=== PATIENT | female | born 1940 | race Caucasian/White ===

== ENCOUNTER 2017-01-10 11:16 | Day surgery (SDC) | payer MEDICARE ==
[~2017-01-10] VITALS: Ht 165.1 cm; Wt 73.3 kg
[2017-01-10] VITALS (11 sets, daily range): BP systolic 121–152; BP diastolic 50–82; PULSE 58–88; RESP 10–18; O2SAT 93–99
[~2017-01-10 11:16] MED LIST: AMLO2.5T PO; BUPR150T9 PO; Clindamycin 900 mg/50 mL D5W IV ONE; DICY10CA13 PO; DRON400T PO; ESTR0.5T; LOSA1TAB70 PO; Lactated Ringer's 1,000 ML IV SCH; OMEP20CA11 PO; PARO20TA5 PO; Phenazopyridine 97.5 mg Tablet PO ONE; SERT50TA9 PO; SPIR25TA3 PO; ZOLP5TAB6 PO
[2017-01-10] MEDS ORDERED: EPHEDrine/NS 5 mg/mL 5 mL Syringe ONE (11:17)
[2017-01-10] MEDS ORDERED: Dexamethasone 4 mg/mL Inj ONE (11:17)
[2017-01-10] MEDS ORDERED: Propofol 10,000 mCg/mL 20 mL Inj ONE (11:17)
[2017-01-10] MEDS ORDERED: Neostigmine 1 mg/mL 10 mL Inj ONE (11:17)
[2017-01-10] MEDS ORDERED: MetoCLOpramide 5 mg/mL 2 mL Inj ONE (11:17)
[2017-01-10] MEDS ORDERED: Rocuronium 10 mg/mL 5 mL Inj ONE (11:17)
[2017-01-10] MEDS ORDERED: fentaNYL-PF 50 mCg/mL 2 mL Inj ONE (11:17)
[2017-01-10] MEDS ORDERED: HYDROmorphone 2 mg/mL Inj ONE (11:17)
[2017-01-10] MEDS ORDERED: Ondansetron 2 mg/mL 2 mL Inj ONE (11:17)
[2017-01-10] MEDS ORDERED: Glycopyrrolate 0.2 mg/mL 5 mL Inj ONE (11:17)
[2017-01-10] MEDS ORDERED: Phenazopyridine 97.5 mg Tablet ONE (11:46)
[2017-01-10] MEDS ORDERED: Clindamycin 900 mg/50 mL D5W Premix IV ONE (11:46)
[2017-01-10] MEDS ORDERED: Lactated Ringer's 1,000 ML IV ONE (12:11)
[2017-01-10] MEDS ORDERED: Lactated Ringer's 500 ML IV PRN (13:17)
[2017-01-10] MEDS ORDERED: Lactated Ringer's 1,000 ML IV SCH (13:17)
--- NOTE | 2017-01-10 13:17 | PCM.HPANE ---
Patient Data Surgeon Admitting Provider: Attending Provider:Sid Ocampo MD Primary Care Physician:Mari Other Provider:Danny Chaparro Anesthesia Reason for Visit Cystocele,Rectocele,Stress Incontinence Ht/WT & BMI Height (Feet): 5 Height (Inches): 5 Weight (Kilograms): 73.93 Body Mass Index 27.00 Allergies Coded Allergies: Penicillins (Verified Allergy, Unknown, 01/08/17) prochlorperazine (Verified Allergy, Unknown, 01/08/17) Uncoded Allergies: POLLENS (Allergy, Unknown, 01/08/17) SHELLFISH (Allergy, Unknown, facial swelling, 01/08/17) new allergy- uncertain if she is intolerant of topical iodine Past Anesthesia History Anesthesia History: Denies:: Anesthesia Reactions, Fam Anesthesia Reaction, Fam Malignant Hypertherm, Malignant Hyperthermia Diabetes History Hx Diabetes?: No MRSA MRSA: No Medications Blood Thinner: Aspirin Hypertension Medication: Yes Home Meds Incl Beta Poli: No Reported Medications Dicyclomine 10 Mg Qwnckpo58 Mg PO QID PRN For GI Cramps Ref 0 01/08/17 Losartan/HCTZ 100-25 mg 1 Each Tablet1 Tablet PO DAILY Ref 0 01/08/17 Zolpidem 5 Mg Tablet5 Mg PO HS PRN For Insomnia Ref 0 01/08/17 Dronedarone HCl (Multaq)400 Mg Adzzqd464 Mg PO BID 30 Days 01/08/17 Spironolactone 25 Mg Ccaydq59 Mg PO DAILY #30 TABLET Ref 0 01/08/17 Amlodipine 2.5 Mg Tablet2.5 Mg PO DAILY Ref 0 01/08/17 Omeprazole 20 Mg Capsule.dr20 Mg PO DAILY Ref 0 01/08/17 Estradiol 0.5 Mg Tablet1 Tab DAILY 01/08/17 Discontinued Reported Medications Bupropion HCl (Zyban)150 Mg Tablet.er150 Mg PO DAILY 01/08/17 Paroxetine 20 Mg Giasmf80 Mg PO HS 30 Days Ref 0 01/08/17 Sertraline HCl (Sertraline)50 Mg Cdlvpc12 Mg PO DAILY 30 Days Ref 0 01/08/17 History HEENT History: Positive for:: Hearing Problem Sinus Problem (recently finished abx for sinus infection) TMJ (wears nightguard) Denies:: Cataracts Glaucoma Cardiovascular History: Positive for:: Atrial Fibrillation (on multaq) Hypertension Irregular Heartbeat Denies:: AICD Chest Pain Congestive Heart Failure Edema Heart Murmur Pacemaker Peripheral Vascular Hx of Respiratory Problem?: No Respiratory History: Denies:: Asthma COPD Emphysema Oxygen Administration Pneumonia Tuberculosis Use of C-PAP Machine (seleep study done, no CPAP recommended) Use of Inhalers / NEBS Hx Neurologic Problems?: Yes Neurological History: Denies:: CVA Dementia Dizziness Headaches Multiple Sclerosis Parkinson's Disease Seizures TIA Hx of GI Problems?: No Gastrointestinal History: Positive for:: Gastroesphageal Reflux Heartburn Denies:: Cirrhosis Gall Bladder Disease Gastrointestinal Bleeding Hepatitis Hiatal Hernia Liver Disease Rectal Bleeding Hx of Problems?: Yes Female Hx: Denies:: Currently Problems with Breasts? Skin History: Denies:: History Skin Disorders? Pressure Ulcers Hx Musculoskeletal Problems?: Yes Musculoskeletal History: Positive for:: Osteoarthritis (neck) Denies:: Degenerative Joint Fibromyalgia Joint Replacement Musculoskeletal Trauma Myasthenia Gravis Systemic Lupus Hx of Psycho/Social Problems?: No Psycho Social History: Denies:: Anxiety Hx Depression Hx Surgeries?: Yes (cooper, bso, eye surg) Hx Any Other Health Problems?: Yes Other History: Denies:: Cancer Endocrine Disease Hospitalization Thyroid Disease History Blood Transfusions: Positive for:: Accept Blood Products? Denies:: Blood Transfuse Reaction Blood Transfusions Hx Diabetes: No Hx Alcohol Use: YesAlcoholic Drinks Per Day: 2-3 drinks weekly- monthlyHx Substance Use: NoHave You Smoked inLast 12 mo: No Stop/Bang P-Blood Pressure: treated: Yes B- Body Mass Index > 35 kg/m2: No A- Age over 50: Yes N- Neck Large Circumference: No G- Gender Male: Yes Risk Assessment Category Category 1A: Patient has history of documented sleep apnea, and HAS NOT received any narcotic, sedative or anesthesia administration during this stay. Category 1B: Patient has history of documented sleep apnea, and HAS received any narcotic , sedative or anesthesia administration during this stay Category 2: Patient has SUSPECTED Obstructive Sleep Apnea, and HAS received any narcotic , sedative or anesthesia administration during this stay. Category 3: Patient has SUSPECTED Obstructive Sleep Apnea and HAS NOT received narcotic, sedative or anesthesia administration during this stay. Category 4: Outpatient in Procedural Areas with known sleep apnea or who screen positive for High Risk via the STOP/BANG questionnaire. Exam Exam General Appearance: Alert, Oriented X3, Cooperative, No Acute Distress HEENT/AIRWAY: MP 2, Neck Movement (FROM), Mouth Opening (3 FBMO) Lungs: Clear to Auscultation, Normal Air Movement Heart: Exam Unremarkable, Regular Rate/Rhythm, No Murmurs/Rubs/Gallops Plan Impression Patient chart reviewed, patient interviewed and anesthestic plan with risks, benefits, and alternatives discussed, and informed consent obtained. NPO Status: > 8 hrs ASA Physical Status: ASA3 Severe Disease (A fib) Anesthetic Plan: GA Bene/Risks/Altern/Consents: Yes HP Complete Prior to Induction: Yes Iván Harman MD Jan 10, 2017 11:40
[2017-01-10] MEDS ORDERED: Atropine 0.4 mg/mL Inj IVPUSH PRN (13:20)
[2017-01-10] MEDS ORDERED: Labetalol 5 mg/mL 4 mL Inj IV PRN (13:20)
[2017-01-10] MEDS ORDERED: Phenylephrine 10,000 mCg/mL Inj IVPUSH PRN (13:20)
[2017-01-10] MEDS ORDERED: hydrALAZINE 20 mg/mL Inj IVPUSH PRN (13:20)
[2017-01-10] MEDS ORDERED: fentaNYL-PF 50 mCg/mL 2 mL Inj IVPUSH PRN (13:20)
[2017-01-10] MEDS ORDERED: HYDROmorphone 1 mg/mL Inj IVPUSH PRN (13:20)
[2017-01-10] MEDS ORDERED: EPHEDrine Sulfate 50 mg/mL Inj IVPUSH PRN (13:20)
[2017-01-10] MEDS ORDERED: Ondansetron 2 mg/mL 2 mL Inj IVPUSH PRN (13:20)
[2017-01-10] MEDS ORDERED: Lidocaine 1%-Epi 1:100,000 20 mL Inj NERVEBLOCK ONE (13:27)
[2017-01-10] MEDS ORDERED: Gentamicin 40 mg/mL 2 mL Inj IRRIGATION ONE (13:28)
[2017-01-10] MEDS ORDERED: Sodium Chloride Bacteriostatic 30 mL Inj INJ ONE (13:29)
[2017-01-10 14:21] LABS: APPEARANCE,URINE HAZY (CLEAR,HAZY); COLOR,URINE ORANGE (YELLOW); PH,URINE 5.5 (5.0-8.0)
[2017-01-10] MEDS ORDERED: Estrogens Conjugated 30 Gm Vaginal Cream VAGINAL ONE (15:01)
[2017-01-10] MEDS ORDERED: Acetaminophen IV 1,000 MG in IV Premix 1 EACH IV ONE (15:50)
[2017-01-10] MEDS ORDERED: MetoCLOpramide 5 mg/mL 2 mL Inj IVPUSH PRN (15:50)
--- NOTE | 2017-01-10 15:53 | PCM.ANEP2 ---
Post Anesthesia Evaluation ASA/CMS Post Anesthesia VS in Patient's Normal Range?: Yes Resp Stable; Airway Patent?: Yes CV Function & Hydration Stable: Yes Mental Status Recovered?: Yes Pain control Satisfactory?: Yes N/V Control Satisfactory?: Yes Iván Harman MD Jan 10, 2017 15:53
--- NOTE | 2017-01-10 15:53 | PCM.ANEP1 ---
Post Anesthesia Phase 1 PACU Phase 1 Assessment Vital Signs Vital Signs Date Time Temp Pulse Resp B/P Pulse Ox O2 Delivery O2 Flow Rate FiO2 01/10/17 15:45 83 16 130/60 99 Simple Mask 8 01/10/17 15:43 36.3 88 16 135/64 99 Simple Mask 8 01/10/17 12:12 70 18 152/82 97 Room Air Anesthetic Administered: GA Level of Alertness: Awake, talking ESPARZA's with Equal Strength: Yes Pain: No Nausea or Vomiting: No Oxygen Delivery: Simple Mask Lungs: Clear to Auscultation, Normal Air Movement Dermatome Level: Full Sensation Iván Harman MD Jan 10, 2017 15:53
--- NOTE | 2017-01-10 17:09 | NUR ---
Arrival to 1002 Pt transferred to 1002 from PACU at 1700. Pt is alert and oriented and denies any pain. Neuro checks are unremarkable and pt ESPARZA with equal strength. Arevalo patent with orange output. Glasses and belongings transferred with pt. Orientation video played.
[2017-01-10] MEDS: 0.9% Sodium Chloride 1,000 ML IV SCH (19:21)
--- NOTE | 2017-01-10 19:50 | NUR ---
Afib med Pt requested to have hs Dronedarone HCL 200mg for AFIB. Moe paged hospitalist and received an order. Pharmacy unable to obtain the medication or find an alternative med at this time and suggested family bring in med for administration. Pt stated that her and her son is out of town. Pt monitored by cont pulse ox-SPo2 97% on 2L NC. Denies resp distress and chest pain/discomfort. care ongoing.
[2017-01-10] MEDS: oxyCODONE-Acetamin 5-325 mg Tablet PO PRN (20:15)
--- NOTE | 2017-01-10 23:08 | NUR ---
Pain Pt given Percocet 5-325mg and Morphine 1mg, which were ineffective in managing her pain. C/O increased pain 06/07. Dr. Sid Ocampo notified. Ordered Dilaudid IV 0.5-1mg Q2-3hrs for pain. Care ongoing.
[2017-01-10] MEDS: HYDROmorphone 1 mg/mL Inj IVPUSH PRN (23:22)
[2017-01-11] MEDS: 0.9% Sodium Chloride 1,000 ML IV SCH ×3 (00:44→15:47)
[2017-01-11 00:50] VITALS: BP 123/62; PULSE 60; RESP 16; O2SAT 97
--- NOTE | 2017-01-11 02:24 | PCM.SURGOP ---
Surgical Operative Report Date of Service: Jan 10, 2017 Pre Operative Diagnosis 1. Recurrent, symptomatic PELVIC ORGAN PROLAPSE. POP-q Stage 2 (Anterior St 2, Posterior St 1-2). 2. History of multiple abdominopelvic surgeries including: robotic sacralcolpopexy performed by Dr. Cony Alexander at [facility] in 08/06/2013; FARIDA 1985; BSO and excision of pelvic mass 2001; appendectomy 1971. 3. Urodynamic stress incontinence. Post Operative Diagnosis 1. POP-q Stage 2 cystocele and rectocele 2. Deficient pubocervical/pubovesical and rectovaginal fascia 3. History of multiple abdominopelvic surgeries including: robotic sacralcolpopexy performed by Dr. Cony Alexander at [facility] in 08/06/2013; FARIDA 1985; BSO and excision of pelvic mass 2001; appendectomy 1971. 4. Urodynamic stress incontinence. Procedure: anterior and posterior repair with Xenform graft and TVT-O sling/cystoscopy Surgeon and Pharmacy Scheduler: Surgeon: Sid Ocampo MD Assistants: Марина Gregory Indication for Procedure Her assessments include: 1. Recurrent, symptomatic PELVIC ORGAN PROLAPSE. POP-q Stage 2 (Anterior St 2, Posterior St 1-2). 2. History of multiple abdominopelvic surgeries including: robotic sacralcolpopexy performed by Dr. Cony Alexander at [facility] in 08/06/2013; FARIDA 1985; BSO and excision of pelvic mass 2001; appendectomy 1971. 3. Urodynamic stress incontinence. She is a candidate for anterior and posterior repair with Xenform graft and TVT- O sling/cystoscopy. She prefers the transobturator approach rather than the retropubic approach due to the risk of pelvic scarring from multiple previous surgeries and therefore increased risk of organ injury with the retropubic approach. She has the option of staying overnight observation as an outpatient, The patient signed the consent form. She agreed with the risks, benefits, and alternatives to surgery. The risks included but not limited to recurrence or persistence of prolapse, recurrence of persistence of incontinence, development of voiding dysfunction, development of urinary urgency, urgency incontinence, frequency, and need for intermittent self-catheterization or prolonged indwelling catheterization, injury to other organs including bladder, bowel, nerves or blood vessels. Need for blood transfusion, need for temporary colostomy or urinary stenting. Development of vaginal scarring, dyspareunia, defecatory dysfunction, recurring pain, hematoma formation, urinary tract infection, cellulitis, necrotizing fascitis, and medical risks including myocardial infarction, stroke or VTE. She also understood the FDA warnings associated with the use of vaginal mesh (dysparunia, vaginal erosion, erosion into bowel/bladder/urethra, requiring further surgery to correct these complications). The patient understood the risks and benefits and consented to surgery. Findings: see dictation Procedure Details SURGICAL TECHNIQUE: The patient was brought to the operating room and was placed under general anesthesia. She was prepped and draped in the normal fashion for vaginal surgery with the legs in Yellofin stirrups. She was given a dose of IV clindamycin Intraoperatively. She received 200 mg po pyridium 30 min prior to surgery. Examination under anesthesia revealed the presence of adequate apical support from the previous sacralcolpopexy performed by another physician in the past. POPQ stage 2 anterior and posterior vaginal wall descent was noted to the level of the hymen. 1.Anterior colporrhaphy with Xenform graft augmentation: Lidocaine 0.5% with 1/ 45537 epinephrine was infiltrated along the anterior vaginal wall mucosa. A midline vertical incision was made through the anterior vaginal wall, extending to the apex. The vaginal wall was dissected off the underlying pubocervical and pubovesical fascia. The dissection was extended laterally beyond the ischial pubic rami. Bilateral paravaginal defects were noted. It was noted that the pubocervical and pubovesical fascial tissues were insufficient and thin. The cystocele was plicated in 2 layers, the first layer with 2-0 Vicryl suture in interrupted fashion, the second layer with 2-0 Tycron suture in an interrupted fashion. A trapezoidal piece of Xenform graft was then incorporated atop the plicated area far laterally. The graft was secured far laterally into the obturator internus membrane. At the level of the bladder neck, an upside down triangular piece of graft was excised so that there was no excessive-support along the level of the bladder neck. Apically, the graft was passed through the vaginal apex. A mild amount of anterior vaginal mucosa was required to be excised. The vagina was reapproximated with 3-0 Vicryl suture in a running- locked fashion. 2. Posterior colpoperineorrhaphy with Xenform graft augmentation: Lidocaine 0.5 % with 1:50,000 of epinephrine was infiltrated along the perineum and posterior vaginal wall mucosa. A Midline vertical incision was made through the posterior vagina and perineum with a scalpel. The vaginal mucosa was dissected off the underlying rectovaginal tissues. It was noted the fascial tissues were thin and deficient . The rectocele was plicated in one layer midline plication using 2-0 vicryl suture. A small amount of excess posterior vaginal mucosa was excised. A rectangular piece of Xenform graft was incorporated atop the posterior plicated area. The lateral and distal portions of the graft were secured using 2-0 Vicryl suture in an interrupted fashion. The apical portion of the graft was sutured to the vaginal apex. The vagina was then reapproximated using 3-0 Vicryl suture in a running locked fashion. Perineum was reapproximated using 2-0 Vicryl suture in an interrupted fashion. The skin was reapproximated using 3-0 Vicryl suture in a subcuticular fashion. EUA revealed that the vagina allowed for the insertion of 3 gloved-fingers to the apex. Adequate hemostasis was noted. 3.Tension-free vaginal tape obturator sling and cystoscopy: Lidocaine 0.5% with 1/41869 epinephrine was infiltrated along the anterior vaginal wall mucosa at the level of the mid urethra. Midline vertical incision was made at that level, 2 periurethral tunnels were created with Metzenbaum scissors. Two stab incisions were created at the skin at the groin at a level 2 cm superior to the external urethral meatus and 2 cm lateral to the fold created between the vulva and thigh. Arevalo catheter had already been inserted. A butterfly guide was inserted into the right periurethral tunnel, a curved helical needle was inserted on top of the guide and rotated out to the ipsilateral skin incision. The same procedure was performed on the contralateral side. Next the Arevalo catheter was removed. Cystoscopy was performed. There was no inadvertent penetration of the sling to the vagina, urethra or bladder. In addition, the ureteric orifices were noted bilaterally and were noted to be functional by the brisk spillage of pyridium-stained urine. The bladder appeared normal. The plastic sheaths of the sling were removed. The bladder was filled with 300 mL of sterile water. Using the Crede maneuver, sling tension was appropriately adjusted. Also a large right angle clamp was allowed to easily pass behind the sling so that the sling was placed in a tension-free manner. The sling ends were cut at the level of the skin. The skin was reapproximated using Mastisol and Steri-Strips. The vagina was reapproximated using 3-0 Vicryl suture in a running fashion. The estimated blood loss was approximately 150 mL. There were no complications. Her hips were deflexed periodically. All sponges and instruments were accounted for. Complications There were no periprocedural complications identified. Surgical Specimen Removed: No Specimen sent to Pathology: No Anesthetic Plan: GA Grafts, Implants: Grafts-See Implant Record, Implants-See Implant Record Output, Estimated Blood Loss: 150 (ml) Blood Administration during quinn: No Drains: None Catheters: Urethral 2 Way Areavlo Post Operative Plan overnight stay in bed as observation as she requires a voiding trial in the am copies to: Sid Ocampo MD; Niru Hammond MD; Марина Gregory William Andre Z MD Jan 11, 2017 02:23
[2017-01-11] MEDS: HYDROmorphone 1 mg/mL Inj IVPUSH PRN ×2 (05:13→08:38)
[2017-01-11 05:25] VITALS: BP 117/53; PULSE 58; RESP 16; O2SAT 94
[2017-01-11 06:26] LABS: BASOPHILS % (AUTO) 0 % (0-3); EOSINOPHILS % (AUTO) 0 % (0-5); MONOCYTES % (AUTO) 5.1 % (4-12); Mean Corpuscular Hemoglobin 30.7 pg (27.0-35.0); Mean Corpuscular Volume 90.7 fL (81-100); NEUTROPHILS % (AUTO) 91.9 % (40-74); Platelet Count 307 bil/L (150-400)
[2017-01-11] MEDS ORDERED: Pantoprazole 40 mg ER24 Tablet PO SCH (06:30)
[2017-01-11] MEDS ORDERED: Senna-Docusate 8.6-50 mg Tablet PO SCH (08:30)
[2017-01-11] MEDS ORDERED: LOSARTAN PO SCH (08:30)
[2017-01-11] MEDS ORDERED: HCTZ PO SCH (08:30)
[2017-01-11] MEDS ORDERED: DRONEDARONE 400 MG PO SCH (08:30)
[2017-01-11 08:36] VITALS: BP 157/57; PULSE 61; RESP 16; O2SAT 95
[2017-01-11] MEDS: Heparin 5,000 Unit/mL Inj SUBQ SCH ×2 (08:41→16:30)
[2017-01-11] MEDS: Ondansetron 2 mg/mL 2 mL Inj IVPUSH PRN ×2 (09:21→10:12)
--- NOTE | 2017-01-11 09:35 | NUR ---
ORDER VERIFICATION Per MD's notes patient has orders to do a voiding trial this morning. Per patient she was told that she will go home with an IFC and does not have to have a voiding trial. Dr. Ocampo paged. Waiting for orders.
--- NOTE | 2017-01-11 10:30 | NUR ---
MD NOTIFICATION IV Dilaudid was administered for pain control. Patient has been nauseous. No emesis noted at this time. Zofran 8 mg IVP administered. Denies SOB. WBC is elevated at 20.8. IFC intact and draining to ramiro colored UO. Bandaid dressing in her groin is CDI. Dr. Ocampo made aware RE: Patients current progress. New orders received to D/C IV Dilaudid; CBC at 1100. Orders for a voiding trial received. MD to come in to check on patient this morning. Care continues.
[2017-01-11 11:52] LABS: Mean Corpuscular Volume 90.8 fL (81-100)
--- NOTE | 2017-01-11 12:40 | PCM.PNSURG ---
Subjective Date of Service: Jan 11, 2017 Date of Service: Jan 11, 2017 Visit Information: Reason for Visit Cystocele,Rectocele,Stress Incontinence Surgery/Surgery Date Post-Op Day # 1 Subjective: AVSS nausea (vomited x 1 when given meds on empty stomach), improving now ambulating doing voiding trial now (sitting on comode) elevated WBC (had sinus infection 2 wk ago which she says has resolved), no fever or infectious sx Cr normal today H&H stable OR explained pt seen again in the evening at 540pm eating solid dinner feels better Pain Management: PO Objective Vital Sign- Last 8 Hours Date Time Temp Pulse Resp B/P Pulse Ox O2 Delivery O2 Flow Rate FiO2 01/11/17 10:18 Supplement Oxygen 01/11/17 08:36 36.6 61 16 157/57 95 Nasal Cannula 2.00 01/11/17 05:25 36.8 58 16 117/53 94 Room Air Intake and Output- Last 8 Hour 01/11/17 Cumulative From/Thru 07:00 01/08/17 14:29 - 01/11/17 06:00 Intake Total 1952 ml 2972 ml Output Total 875 ml 1020 ml Balance 1077 ml 1952 ml Intake Oral 700 ml 820 ml IV Total 1252 ml 2152 ml Output Urine Total 725 ml 860 ml Estimated Blood Loss 150 ml 160 ml # Bowel Movements 0 0 General: Alert, Oriented X3, Cooperative Lungs: Clear to Auscultation Abdomen: Benign, Soft Catheters: Urethral 2 Way Rivas Result Diagram: 01/11/17 1145 01/11/17 0515 Assessment & Plan Impression 1. WBC 22.5 - may be reactive from surgery 2. nausea and vomiting 3. Normal creatinine today (1.2 prior to surgery) Problems: Plan repeat CBC at 5 pm can use ibuprofen prn as Cr is normal today antinauseants; narcotics may be causing nausea so try to limit d/c home today if stable and WBC not > 30 - she will do a f/u WBC in clinic tomorrow [facility] teaching since she failed voiding trial script for ondansetron written f/u in 2 wk (also in 1 wk if home with rivas) copies to: Sid Ocampo MD, William Andre Z MD Jan 11, 2017 12:40
--- NOTE | 2017-01-11 13:00 | NUR ---
VOIDING TRIAL Patient was able to ambulate in the room with SBA. Tolerated activity well. Vaginal packing d/cd at 1145. Voiding trial initiated as ordered. Patient was only able to void 100 ml of blood tinged UO. Per protocol IFC was reinserted. Patient was instructed RE: IFC care. Will reinforce instructions prior to D/C. Dr. Ocampo was at the bedside during the completion of the voiding trial. CBC results at [address] Ocampo was made aware. CBC to be repeated at 1800.
--- NOTE | 2017-01-11 13:13 | PCM.DIGYN ---
Surgical Discharge Instruction Dates of Hospitalization Date of Hospital Admission 01/10-01/11/17 as overnight stay in bed observation status Providers Admitting Physician: Primary Care Physician: Nopcp Attending Physician: Sid Ocampo MD Diagnosis at Time of Discharge Diagnosis at time of discharge 1. POP-q Stage 2 cystocele and rectocele 2. Deficient pubocervical/pubovesical and rectovaginal fascia 3. History of multiple abdominopelvic surgeries including: robotic sacralcolpopexy performed by Dr. Cony Alexander at [facility] in 08/06/2013; FARIDA 1985; BSO and excision of pelvic mass 2001; appendectomy 1971. 4. Urodynamic stress incontinence. Post-operative diagnosis 1. POP-q Stage 2 cystocele and rectocele 2. Deficient pubocervical/pubovesical and rectovaginal fascia 3. History of multiple abdominopelvic surgeries including: robotic sacralcolpopexy performed by Dr. Cony Alexander at [facility] in 08/06/2013; FARIDA 1985; BSO and excision of pelvic mass 2001; appendectomy 1971. 4. Urodynamic stress incontinence. Problems: Diet Discharge Diet: No restrictions Activity Discharge Activity-General: Restrict lifting to no greater than (10 lbs for 6 wk) Dressing and Incisional Care Dressing Care: Allow Steri Stripes to fall off Hygiene: May shower Follow Up Plan Follow Up Plan Also f/u tomorrow (Sunday) in clinic to have a repeat WBC/CBCdiff ordered Follow-up appointment: Weeks (2; also if home with rivas, f/u in [address] ocampo's MA) Call your provider for: Fever, Chills, Shortness of breath, Vomitting, Drainage at incision, Heavy vaginal bleeding, Wound redness, Increasing pain Sid Ocampo MD Jan 11, 2017 13:13
[2017-01-11] MEDS: oxyCODONE-Acetamin 5-325 mg Tablet PO PRN (13:43)
[2017-01-11 14:35] VITALS: BP 117/58; PULSE 39; RESP 16; O2SAT 97
[2017-01-11 17:43] VITALS: BP 125/58; PULSE 66; O2SAT 95
[2017-01-11 18:26] LABS: BASOPHILS % (AUTO) 0.1 % (0-3); EOSINOPHILS % (AUTO) 0.1 % (0-5); MONOCYTES % (AUTO) 4.8 % (4-12); Mean Corpuscular Hemoglobin 31.3 pg (27.0-35.0); Mean Corpuscular Volume 91.8 fL (81-100); NEUTROPHILS % (AUTO) 88.4 % (40-74); Platelet Count 287 bil/L (150-400)
--- NOTE | 2017-01-11 19:02 | NUR ---
MD NOTIFICATION WBC-19. Dr. Ocampo made aware. Discharge orders are in.
--- NOTE | 2017-01-11 19:02 | NUR ---
DISCHARGE Percocet 2 tabs PO has been effective for pain control. Tolerating liquids PO and her diet well. Patient ate her dinner without any issues noted. Denies nausea. No emesis noted. Denies SOB. Patient has been able to ambulate with SBA in her room and tolerated it well. Bandaid dressing in her groin is CDI. IV saline lock d/cd. Discharge instructions, care notes and prescription was given to the patient and she verbalized understanding. IFC instructions and demonstration was given to the patient. IFC will be plugged prior to D/C. Patient is waiting for transportation at this time. Care endorsed to JOSE R Aj. (Copy of D/C is in the chart).
== END 2017-01-11 20:00 | disposition home or self-care (01) ==
LOC: SAS 11:16 → OSC 17:04 → SAS 01-11 20:00
PROVIDERS: ATTEND Obstetrics & Gynecology
DX: N81.11 Cystocele, midline (principal); N81.6 Rectocele; N39.3 Stress incontinence (female) (male); G89.18 Other acute postprocedural pain; I10 Essential (primary) hypertension; I48.91 Unspecified atrial fibrillation; N28.9 Disorder of kidney and ureter, unspecified; K21.9 Gastro-esophageal reflux disease without esophagitis; Z79.82 Long term (current) use of aspirin; Z79.890 Hormone replacement therapy; Z87.891 Personal history of nicotine dependence
CPT/HCPCS: 36415; 57260; 57267; 57288; 76942; 80048; 81000; 85025; 85027; 86850; 96374; 96375; 96376; C1763; C1771; J1100; J1170; J1580; J1644; J2250; J2270; J2405; J2710; J2765; J3010; J7030; J7120